=== PATIENT | male | born 1955 | race Caucasian/White ===

== ENCOUNTER 2020-10-02 10:35 | Outpatient (CLI) | payer MEDICARE, SELFPAY ==
--- NOTE | ~2020-10-02 | US_ITS ---
EXAMINATION:US venous doppler LE LT INDICATION:Left leg pain TECHNIQUE: Multiple grayscale, color flow and Doppler images of the left lower extremity deep venous systems were obtained and reviewed. COMPARISON:No prior studies for comparison. FINDINGS: The common femoral, superficial femoral and popliteal veins demonstrate normal respiratory variation, augmentation and compressibility. Color flow is also seen within the posterior tibial, pe roneal, greater saphenous and profunda veins. IMPRESSION: 1: No lower extremity deep venous thrombosis. Reviewed, dictated and finalized at location A. CARPENTER
== END 2020-10-02 10:36 | disposition home or self-care (01) ==
DX: I83.812 Varicose veins of left lower extremity with pain (principal)
CPT/HCPCS: 93971

== ENCOUNTER 2021-02-07 10:56 | Outpatient (CLI) | payer MEDICARE, SELFPAY | END 2021-02-07 10:57 | disposition home or self-care (01) | LOC: ANHAUDIO 10:57 | PROVIDERS: PCP Family Medicine; Visit Provider Nurse Practitioner | DX: Z01.10 Encounter for examination of ears and hearing without abnormal findings (principal); H90.3 Sensorineural hearing loss, bilateral | CPT/HCPCS: 92557; 92567 ==

== ENCOUNTER 2021-02-22 07:57 | Outpatient (RCR) | payer SELFPAY | END 2021-02-22 23:59 | disposition home or self-care (01) | LOC: ANHAUDIO 07:57 | PROVIDERS: PCP Family Medicine; Visit Provider Family Medicine | DX: Z46.1 Encounter for fitting and adjustment of hearing aid (principal) | CPT/HCPCS: V5261 ==

== ENCOUNTER 2021-07-19 00:33 | Day surgery (SDC) | payer MEDICARE, SELFPAY ==
[2021-07-02 12:36] VITALS: BMI 27.6
[2021-07-19 07:41] VITALS: BMI 26.7
[2021-07-19 07:53] VITALS: BP 153/94; PULSE 61; RESP 16; TEMP 35.6; O2SAT 97
[2021-07-19] MEDS: LACTATED RINGERS 1,000 ML 150 ML IV CONT (07:54)
--- NOTE | 2021-07-19 07:55 | WPDANESEPPF ---
Anes - Initial Pre Proc Eval Procedure: Operation Date: 07/19/21 08:30 Proposed Procedures p Screening Colonoscopy - Abhishek Kaplan MD Date/Time: 07/19/21 07:55 Surgeon: Abhishek Kaplan MD Pre Op Diagnosis: hx colon polyps Patient Data Age: 66 Gender: M Height: 1.8 m Weight: 86.9 kg Last Vital Signs Temp 35.6 C L 07/19/21 07:53 Pulse 61 07/19/21 07:53 Resp 16 07/19/21 07:53 BP 153/94 H 07/19/21 07:53 Pulse Ox 97 07/19/21 07:53 Allergies Allergy/AdvReac Type Severity Reaction Status Date / Time No Known Allergies Allergy Unverified 07/19/21 07:40 Home Medications Medication Instructions Recorded Confirmed Type indapamide 1.25 mg tablet 1.25 mg PO QAM #90 tablet 08/29/19 07/19/21 Rx aspirin 81 mg PO DAILY 07/02/21 07/19/21 History cetirizine [Zyrtec] 10 mg PO DAILY 07/02/21 07/19/21 History fenofibrate 54 mg PO DAILY 07/02/21 07/19/21 History wmitetibpqcr-zfwj-sdcib acid 1 tablet PO DAILY 07/02/21 07/19/21 History [Centrum] Patient hx anesthesia problems: none Family hx anesthesia problems: none Results Review: All pre-operative results and documents have been reviewed as part of the pre-operative evaluation. [facility] Past Medical History Medical History (Updated 07/19/21 @ 07:56 by Cristian Paez MD) HTN (hypertension) Hyperlipidemia Surgical History Surgical History (Updated 07/19/21 @ 07:56 by Cristian Paez MD) H/O colonoscopy Family History Family History Mother Diabetes mellitus Hypertension Social History Social History Smoking packs per day: 1.5 Smoking cigarettes per day: 30.0 Years smoked: 16 Smoking pack-years: 24.00 Smoking status: Former smoker Tobacco type: cigarettes Second hand tobacco smoke exposure: No Smoking end date: 08/17/86 Alcohol intake: current Drinks per week: 4 Substance use type: does not use Living arrangements: with family Spiritual care concerns: No Anes - Eval Final PreProcedure Day of Procedure 07/19/21 07:55 Patient weight: overweight Heart: regular rate and rhythm Lungs: clear to auscultation Airway: Mallampati scale class II Neurological: alert and oriented Last oral intake: >/= 8 hours ASA classification: II Emergent: no Anesthetic plan: proceed Anesthesia type and monitoring: general GIVS and standard monitoring Results Review: All pre-operative results and documents have been reviewed as part of the pre-operative evaluation. Informed Consent: The patient's anesthetic plan and its attendant risks and benefits were discussed with the patient/family/POA. Questions were solicited and answers provided to the satisfaction of the patient/family/POA.
--- NOTE | 2021-07-19 08:15 | PM.HPGS ---
History of Present Illness History of Present Illness Consent: Risks, benefits, and alternatives have been discussed and questions answered. Patient agrees to proceed with procedure. Chief complaint: hx colon polyps Narrative: Brian Yang Jr. is a 66 year old male with colon polyps in 2016 Review of Systems Constitutional: Constitutional: Denies headache(s) and Denies weakness Eyes: Eyes: Denies blurry vision ENT: Reports Normal hearing present, Denies headache(s) and Denies neck pain Cardiovascular: Cardiovascular: Denies chest pain and Denies dyspnea Respiratory: Respiratory: Denies dyspnea Gastrointestinal: Gastrointestinal: Reports no additional gastrointestinal complaints Genitourinary: Genitourinary: Denies dysuria Musculoskeletal: Musculoskeletal: Denies neck pain Integumentary/Breasts: Skin/Breast: Denies dry skin Neurologic: Reports Normal hearing present, Denies headache(s) and Denies weakness Psychiatric: Psychiatric: Denies anxiety Endocrine: Endocrine: Denies change in body appearance Hematologic/Lymphatic: Hematologic/Lymphatic: Denies easy bleeding Allergic/Immunologic: Allergic/Immunologic: Denies urticaria PMFSH Past Medical History Medical History (Updated 07/19/21 @ 08:16 by Abhishek Kaplan MD) Adenomatous colon polyp HTN (hypertension) Hyperlipidemia Surgical History Surgical History (Updated 07/19/21 @ 07:56 by Cristian Paez MD) H/O colonoscopy Family History Family History Mother Diabetes mellitus Hypertension Social History Social History Smoking packs per day: 1.5 Smoking cigarettes per day: 30.0 Years smoked: 16 Smoking pack-years: 24.00 Smoking status: Former smoker Tobacco type: cigarettes Second hand tobacco smoke exposure: No Smoking end date: 08/17/86 Alcohol intake: current Drinks per week: 4 Substance use type: does not use Living arrangements: with family Spiritual care concerns: No Meds Home Medications and Allergies Home Medications Medication Instructions Recorded Confirmed Type indapamide 1.25 mg tablet 1.25 mg PO QAM #90 tablet 08/29/19 07/19/21 Rx aspirin 81 mg PO DAILY 07/02/21 07/19/21 History cetirizine [Zyrtec] 10 mg PO DAILY 07/02/21 07/19/21 History fenofibrate 54 mg PO DAILY 07/02/21 07/19/21 History lxhyiclzuzpf-xkzm-ykagn acid 1 tablet PO DAILY 07/02/21 07/19/21 History [Centrum] Allergies Allergy/AdvReac Type Severity Reaction Status Date / Time No Known Allergies Allergy Unverified 07/19/21 07:40 Vital Signs Vital Signs - 24 hr 07/19/21 07:53 Temperature 96.1 F L Pulse Rate 61 Respiratory Rate 16 Blood Pressure 153/94 H Pulse Oximetry 97 Exam Const: General: comfortable and no acute distress HENMT: General nose exam: Normal nares present Eyes: General: appearance normal, both eyes and all related structures Neck: Neck: no JVD Resp: Auscultation: clear to auscultation bilaterally Cardio: Rate: regular rate Rhythm: regular rhythm GI: Inspection: non-distended GI Palp: Yes Soft to palpation Skin: General skin exam: normal color Neuro: General: gait normal Speech: normal speech Extrem: General: normal to inspection Psych: Mental Status: mental status grossly normal Assessment and Plan Assessment and plan (1) Adenomatous colon polyp: Code(s): D12.6 - Benign neoplasm of colon, unspecified Status: Acute Assessment and Plan: colonoscopy
[2021-07-19 08:30] VITALS: BP 117/71; PULSE 63; RESP 16; O2SAT 98
[2021-07-19 08:40] VITALS: BP 115/75; PULSE 60; RESP 15; O2SAT 100
[2021-07-19 08:50] VITALS: BP 136/92; PULSE 57; RESP 14; O2SAT 99
== END 2021-07-19 09:03 | disposition home or self-care (01) ==
PROVIDERS: PCP Family Medicine; Visit Provider Internal Medicine Gastroenterology
PROC: 0DJD8ZZ Inspection of Lower Intestinal Tract, Via Natural or Artificial Opening Endoscopic (ICD-10-PCS; CPT 45378; principal; 2021-07-19 08:30)
DX: Z12.11 Encounter for screening for malignant neoplasm of colon (principal); K57.30 Diverticulosis of large intestine without perforation or abscess without bleeding; K64.8 Other hemorrhoids; Z86.010 Personal history of colon polyps; I10 Essential (primary) hypertension; E78.5 Hyperlipidemia, unspecified; Z79.82 Long term (current) use of aspirin; Z87.891 Personal history of nicotine dependence
CPT/HCPCS: G0105; J2704; J7120

== ENCOUNTER 2024-05-30 10:23 | Outpatient (CLI) | payer MEDICARE, SELFPAY ==
--- NOTE | ~2024-05-30 | XR_ITS ---
Right Knee Technique: AP, lateral, and sunrise views were obtained. Clinical History: Pain Findings: No fracture or dislocation is seen. Osseous alignment is anatomic. Joint minimal patellar s purring noted. Soft tissues are unremarkable. No joint effusion is seen. Impression: Minimal patellar spurring. Reviewed, dictated and finalized at location . Impression: Minimal patellar spurring.
== END 2024-05-30 10:24 | disposition home or self-care (01) ==
PROVIDERS: PCP Family Medicine; Visit Provider Registered Nurse
DX: M25.561 Pain in right knee (principal)
CPT/HCPCS: 73564

== ENCOUNTER 2025-02-01 08:44 | Outpatient (CLI) | payer MEDICARE, OTHER, SELFPAY ==
--- NOTE | ~2025-02-01 | US_ITS ---
Thyroid ultrasound. Clinical History: Hypothyroid Findings: Real-time sonography of the thyroid gland was performed. The right lobe measures 6.7 x 1.8 x 1.8 cm. The left lobe measures 6.3 x 1.6 x 1.9 cm. The isthmus is 2 mm in AP diameter. Thyroid parenchyma is diffusely heterogeneous without discrete nodule. There is diffuse relative hype rvascularity throughout the gland on color imaging. Impression: Heterogeneous thyroid gland with diffuse hypervascularity. Correlate for thyroiditis. No discrete nod ule seen.. Reviewed, dictated and finalized at location . Impression: Heterogeneous thyroid gland with diffuse hypervascularity. Correlate for thyroi ditis. No discrete nodule seen..
== END 2025-02-01 08:45 | disposition home or self-care (01) ==
LOC: MICIMG 08:48
PROVIDERS: PCP Family Medicine; Visit Provider Registered Nurse
DX: E03.8 Other specified hypothyroidism (principal)
CPT/HCPCS: 76536